=== PATIENT | female | born 1990 | race Caucasian/White ===

== ENCOUNTER 2016-12-05 10:55 | Emergency (ER) | payer BC ==
[2016-12-05 11:26] VITALS: BP 155/82
[2016-12-05] MEDS ORDERED: NS 0.9% 1000 ML* 1,000 ML IV ONE (11:50)
--- NOTE | 2016-12-05 12:34 | RAD ---
INDICATION: 5 week with spotting COMPARISON: None TECHNIQUE: Transvaginal scans were performed for the purposes of early evaluation. FINDINGS: There is a single intrauterine gestation with identification of the pole and yolk sac. cardiac activity is not confirmed. The pole corresponds to a 6 week 5 day gestation and the sac size to a 5 week 5 day gestation. There is no subchorionic hemorrhage. The right ovary measures 3.4 x 2.5 x 2.0 cm and the left ovary 2.5 x 1.7 x 1.4 cm. IMPRESSION: EARLY INTRAUTERINE GESTATION AT APPROXIMATELY 6 WEEKS. CARDIAC ACTIVITY IS NOT CONFIRMED BUT THIS IS A VERY EARLY GESTATION. SUGGEST CORRELATION WITH SERIAL BETA-HCGS AND FOLLOW-UP ULTRASONOGRAPHY TO ASSESS FOR VIABILITY.
[2016-12-05 13:02] LABS: Hematocrit 38 % (35-47); Mean Corpuscular HGB Conc 34 g/dl (31-36); Mean Corpuscular Hemoglobin 29 pg (27-31); Mean Corpuscular Volume 85 fL (80-97); Mean Platelet Volume 8 um3 (7.4-10.4); Red Blood Count 4.52 10^6/ul (4.0-5.4); Red Cell Distribution Width 13 % (10.5-15); White Blood Count 10.5 10^3/ul (3.5-10.8)
[2016-12-05 13:18] LABS: Albumin 4.1 g/dL (3.2-5.2); BUN/Creatinine Ratio 11.6 (8-20); Calcium 9.7 mg/dL (8.6-10.3); EGFR African American 103.4 (>60); EGFR Non-African American 80.4 (>60); Globulin 3.3 g/dL (2-4); Total Bilirubin 0.3 mg/dL (0.2-1.0); Total Protein 7.4 g/dL (6.4-8.9)
[2016-12-05 13:19] LABS: Potassium 3.7 mmol/L (3.5-5.0)
--- NOTE | 2016-12-05 19:53 | ED ---
Arnoldo Echavarria Adam, scribed for J Luis Francis MD on 12/05/16 at 1347 . - HPI Summary HPI Summary: Pt is a 26 year old female presenting with vaginal bleeding. She believes that she is 5 weeks into her and she came to the ED because she realized she was spotting when she went to the bathroom at work today. She also reports nausea. She denies any pain, cramping, or dysuria. This is the pt' s first . LMP was 10/19. She has had lab work done with her ENGINE REPAIRER but no ultrasound. - History of Current Complaint Chief Complaint: EDOBProblems Stated Complaint: 5WKS PREG / SPOTTING Time Seen by Provider: 12/05/16 12:34 Hx Obtained From: Patient Chief Complaint: Vaginal Bleeding - Spotting Onset/Duration: Started Hours Ago, Atraumatic, Resolved Timing: Intermittent Severity: Moderate Current Severity: None Location of Pain: None Aggravating Factors: Nothing Alleviating Factors: Nothing Associated Signs and Symptoms: Positive: Negative - Allergies/Home Medications Allergies/Adverse Reactions: Allergies Allergy/AdvReac Type Severity Reaction Status Date / Time No Known Allergies Allergy Verified 10/31/16 18:21 PMH/Surg Hx/FS Hx/Imm Hx Endocrine/Hematology History: Denies: Hx Diabetes, Hx Thyroid Disease Cardiovascular History: Denies: Hx Hypertension, Other Cardiovascular Problems/Disorders Respiratory History: Reports: Hx Asthma, Hx Sleep Apnea, Other Respiratory Problems/Disorders - born premature, was intubated then, throat issues Denies: Hx Chronic Obstructive Pulmonary Disease (COPD) GI History: Denies: Hx Ulcer Musculoskeletal History: Denies: Other Musculoskeletal History Sensory History: Denies: Hx Contacts or Glasses, Hx Hearing Aid Opthamlomology History: Denies: Hx Contacts or Glasses Neurological History: Denies: Other Neuro Impairments/Disorders Psychiatric History: Reports: Hx Anxiety - ON MEDS, Hx Depression - ON MEDS - Surgical History Surgery Procedure, Year, and Place: 2011. EAR TUBES A CHILD. LARYNGEAL WEB EXCISION 04/20 [facility] Hx Anesthesia Reactions: No Infectious Disease History: No Infectious Disease History: Denies: Hx Hepatitis, Hx Human Immunodeficiency Virus (HIV), Traveled Outside the [place] in Last 30 Days - Family History Known Family History: Positive: None Negative: Cardiac Disease Family History: no cardiovascular issues in family lineage - Social History Occupation: Student Lives: Alone Alcohol Use: None Hx Substance Use: No Substance Use Type: Reports: None Hx Tobacco Use: No Smoking Status (MU): Never Smoked Tobacco Have You Smoked in the Last Year: No Review of Systems Constitutional: Negative Negative: Fever Positive: Nausea. Negative: Abdominal Pain Positive: other - Vaginal bleeding/spotting. Negative: dysuria All Other Systems Reviewed And Are Negative: Yes Physical Exam - Physical Exam Triage Information Reviewed: Yes Vital Signs Reviewed: Yes Appearance: Positive: Well-Appearing, No Pain Distress Skin: Positive: Warm, Skin Color Reflects Adequate Perfusion, Dry Head/Face: Positive: Normal Head/Face Inspection Eyes: Positive: Normal ENT: Positive: Normal ENT inspection Neck: Positive: Supple, Nontender Respiratory/Lung Sounds: Positive: Clear to Auscultation, Breath Sounds Present Cardiovascular: Positive: RRR Abdomen Description: Positive: Nontender, Soft Bowel Sounds: Positive: Present Musculoskeletal: Positive: Normal Neurological: Positive: Normal Psychiatric: Positive: Normal, Affect/Mood Appropriate Diagnostics - Vital Signs Vital Signs Temp Pulse Resp BP Pulse Ox 12/05/16 11:23 98.6 F 84 18 155/82 100 - Laboratory Lab Results: Lab Results 12/05/16 12/05/16 12/05/16 Range/Units 12:52 12:52 12:52 WBC 10.5 (3.5-10.8) 10^3/ul RBC 4.52 (4.0-5.4) 10^6/ul Hgb 13.0 (12.0-16.0) g/dl Hct 38 (35-47) % MCV 85 (80-97) fL MCH 29 (27-31) pg MCHC 34 (31-36) g/dl RDW 13 (10.5-15) % Plt Count 437 (150-450) 10^3/ul MPV 8 (7.4-10.4) um3 Neut % (Auto) 73.6 (38-83) % Lymph % (Auto) 19.3 L (25-47) % [place] % (Auto) 5.2 (1-9) % Eos % (Auto) 1.3 (0-6) % Baso % (Auto) 0.6 (0-2) % Absolute Neuts (auto) 7.7 (1.5-7.7) 10^3/ul Absolute Lymphs (auto) 2.0 (1.0-4.8) 10^3/ul Absolute Monos (auto) 0.5 (0-0.8) 10^3/ul Absolute Eos (auto) 0.1 (0-0.6) 10^3/ul Absolute Basos (auto) 0.1 (0-0.2) 10^3/ul Absolute Nucleated RBC 0 10^3/ul Nucleated RBC % 0 Sodium 134 (133-145) mmol/L Potassium 3.7 (3.5-5.0) mmol/L Chloride 104 (101-111) mmol/L Carbon Dioxide 23 (22-32) mmol/L Anion Gap 7 (2-11) mmol/L BUN 10 (6-24) mg/dL Creatinine 0.86 (0.51-0.95) mg/dL Est GFR ( Amer) 103.4 (>60) Est GFR (Non-Af Amer) 80.4 (>60) BUN/Creatinine Ratio 11.6 (8-20) Glucose 80 (70-100) mg/dL Calcium 9.7 (8.6-10.3) mg/dL Total Bilirubin 0.30 (0.2-1.0) mg/dL AST 24 (13-39) U/L ALT 61 H (7-52) U/L Alkaline Phosphatase 52 (34-104) U/L Total Protein 7.4 (6.4-8.9) g/dL Albumin 4.1 (3.2-5.2) g/dL Globulin 3.3 (2-4) g/dL Albumin/Globulin Ratio 1.2 (1-3) Beta HCG, Quant 17286.00 mIU/mL Blood Type Pending Result Diagrams: 12/05/16 12:52 12/05/16 12:52 Lab Statement: Any lab studies that have been ordered have been reviewed, and results considered in the medical decision making process. - Additional Comments Diagnostic Additional Comments: Beta HCG, Quant - 43597.00 Transvaginal US - IMPRESSION: EARLY INTRAUTERINE GESTATION AT APPROXIMATELY 6 WEEKS. CARDIAC ACTIVITY IS NOT CONFIRMED BUT THIS IS A VERY EARLY GESTATION. SUGGEST CORRELATION WITH SERIAL BETA-HCGS AND FOLLOW-UP ULTRASONOGRAPHY TO ASSESS FOR VIABILITY. Course/Dx - Course Course Of Treatment: Eloisa Bernal has had a positive test about a week ago and is about 5 weeks from her LMP. She started spotting this AM without any other significant symptoms. Her HCG was elevated and an U/S soulded a 6 week IUP. She was reassured and is to F/U with [facility]. - Diagnoses Provider Diagnoses: Spotting in first trimester Discharge - Discharge Plan Condition: Stable Disposition: HOME Patient Education Materials: First Trimester Vaginal Bleed (ED) Forms: *Work Release Referrals: [facility] [Provider Group] Additional Instructions: Follow up with [facility]. The documentation as recorded by the Arnoldo vega Adam accurately reflects the service I personally performed and the decisions made by me, J Luis Francis MD.
== END 2016-12-05 14:08 | disposition home or self-care (01) ==
LOC: ED 10:55
DX: O46.91 Antepartum hemorrhage, unspecified, first trimester (principal); Z3A.01 Less than 8 weeks gestation of pregnancy; R11.0 Nausea
CPT/HCPCS: 36415; 76817; 80053; 84702; 85025; 86900; 86901; 99281

== ENCOUNTER → 2017-06-24 12:32 | Emergency (ER) | payer BC ==
[~2017-06-24 12:32] MED LIST: Metoclopramide IV* 5 MG/ML 2 ML VIAL IV SLOW PU ONE
[2017-06-24] MEDS: NS 0.9% 1000 ML* 2,000 ML IV ONE (18:51)
[2017-06-24 19:20] LABS: Hematocrit 39 % (35-47); Hemoglobin 13.1 g/dl (12.0-16.0); Mean Corpuscular HGB Conc 34 g/dl (31-36); Mean Corpuscular Hemoglobin 29 pg (27-31); Mean Corpuscular Volume 86 fL (80-97); Mean Platelet Volume 8 um3 (7.4-10.4); Red Blood Count 4.53 10^6/ul (4.0-5.4); Red Cell Distribution Width 13 % (10.5-15)
[2017-06-24 19:32] LABS: Albumin 4.2 g/dL (3.2-5.2); BUN/Creatinine Ratio 10.8 (8-20); C Reactive Protein 10.16 mg/L (< 5.00); Calcium 9.2 mg/dL (8.6-10.3); EGFR Non-African American 94.9 (>60); Globulin 3.4 g/dL (2-4); Potassium 3.7 mmol/L (3.5-5.0); Total Bilirubin 0.4 mg/dL (0.2-1.0); Total Protein 7.6 g/dL (6.4-8.9)
[2017-06-24 20:09] LABS: Urine Bacteria Absent (Absent); Urine Bilirubin Negative (Negative); Urine Glucose Negative (Negative); Urine Nitrite Negative (Negative)
--- NOTE | 2017-06-24 20:36 | ED ---
GI/ HPI - HPI Summary HPI Summary: 27F at 8 weeks presents with nausea and vomiting. She denies any abdominal pain, vaginal discharge or bleeding. She states that she has not had appetite for many days due to the nausea and so she feels dehydrated. She states this has caused her to have a headache. She saw her obgyn who prescribed dicelgis but she has not been able to start it yet. She denies any fever, flank pain, dysuria, hematuria, frequency or urgency. She denies any previous abdominal surgeries. - History of Current Complaint Chief Complaint: EDOBProblems Time Seen by Provider: 06/24/17 18:03 Stated Complaint: N,V 8 WEEKS PREG Hx Last Menstrual Period: LAST WEEK Pain Intensity: 0 - Allergy/Home Medications Allergies/Adverse Reactions: Allergies Allergy/AdvReac Type Severity Reaction Status Date / Time No Known Allergies Allergy Verified 10/31/16 18:21 PMH/Surg Hx/FS Hx/Imm Hx Endocrine/Hematology History: Denies: Hx Diabetes, Hx Thyroid Disease Cardiovascular History: Denies: Hx Hypertension, Other Cardiovascular Problems/Disorders Respiratory History: Reports: Hx Asthma, Hx Sleep Apnea, Other Respiratory Problems/Disorders - born premature, was intubated then, throat issues Denies: Hx Chronic Obstructive Pulmonary Disease (COPD) GI History: Denies: Hx Ulcer Musculoskeletal History: Denies: Other Musculoskeletal History Sensory History: Denies: Hx Contacts or Glasses, Hx Hearing Aid Opthamlomology History: Denies: Hx Contacts or Glasses Neurological History: Denies: Other Neuro Impairments/Disorders Psychiatric History: Reports: Hx Anxiety - ON MEDS, Hx Depression - ON MEDS - Surgical History Surgery Procedure, Year, and Place: [facility], 2011. EAR TUBES A CHILD. [place] [facility] [place]est[place] Reactions: No Infectious Disease History: No Infectious Disease History: Denies: Hx Hepatitis, Hx Human Immunodeficiency Virus (HIV), Traveled Outside the US in Last 30 Days - Family History Known Family History: Positive: None Negative: Cardiac Disease Family History: no cardiovascular issues in family lineage - Social History Alcohol Use: None Hx Substance Use: No Substance Use Type: Reports: None Hx Tobacco Use: No Smoking Status (MU): Never Smoked Tobacco Have You Smoked in the Last Year: No Review of Systems Negative: Fever Negative: Chest Pain Negative: Shortness Of Breath Positive: Vomiting, Nausea. Negative: Abdominal Pain All Other Systems Reviewed And Are Negative: Yes Physical Exam Triage Information Reviewed: Yes Vital Signs On Initial Exam: Initial Vitals Temp Pulse Resp BP Pulse Ox 98.1 F 84 18 136/76 98 06/24/17 12:53 06/24/17 12:53 06/24/17 12:53 06/24/17 12:53 06/24/17 12:53 Vital Signs Reviewed: Yes Appearance: Positive: Well-Appearing Skin: Positive: Warm, Skin Color Reflects Adequate Perfusion, Dry Head/Face: Positive: Normal Head/Face Inspection Eyes: Positive: Normal, Conjunctiva Clear ENT: Positive: Normal ENT inspection, Pharynx normal, TMs normal Respiratory/Lung Sounds: Positive: Clear to Auscultation, Breath Sounds Present Cardiovascular: Positive: Normal, RRR Abdomen Description: Positive: Nontender, Soft Bowel Sounds: Positive: Present - Isaac Coma Scale Coma Scale Total: 15 Diagnostics - Vital Signs Vital Signs Temp Pulse Resp BP Pulse Ox 06/24/17 18:46 97.8 F 87 16 124/61 100 06/24/17 18:30 67 124/61 100 06/24/17 18:00 73 124/104 100 06/24/17 17:55 76 99 06/24/17 17:52 121/73 06/24/17 14:19 98.6 F 73 16 118/67 97 06/24/17 12:53 98.1 F 84 18 136/76 98 - Laboratory Lab Results: Lab Results 06/24/17 06/24/17 06/24/17 Range/Units 19:05 19:05 19:05 WBC 12.0 H (3.5-10.8) 10^3/ul RBC 4.53 (4.0-5.4) 10^6/ul Hgb 13.1 (12.0-16.0) g/dl Hct 39 (35-47) % MCV 86 (80-97) fL MCH 29 (27-31) pg MCHC 34 (31-36) g/dl RDW 13 (10.5-15) % Plt Count 382 (150-450) 10^3/ul MPV 8 (7.4-10.4) um3 Neut % (Auto) 76.1 (38-83) % Lymph % (Auto) 17.4 L (25-47) % Mccormick % (Auto) 5.0 (1-9) % Eos % (Auto) 0.7 (0-6) % Baso % (Auto) 0.8 (0-2) % Absolute Neuts (auto) 9.1 H (1.5-7.7) 10^3/ul Absolute Lymphs (auto) 2.1 (1.0-4.8) 10^3/ul Absolute Monos (auto) 0.6 (0-0.8) 10^3/ul Absolute Eos (auto) 0.1 (0-0.6) 10^3/ul Absolute Basos (auto) 0.1 (0-0.2) 10^3/ul Absolute Nucleated RBC 0.01 10^3/ul Nucleated RBC % 0.1 Sodium 134 (133-145) mmol/L Potassium 3.7 (3.5-5.0) mmol/L Chloride 103 (101-111) mmol/L Carbon Dioxide 23 (22-32) mmol/L Anion Gap 8 (2-11) mmol/L BUN 8 (6-24) mg/dL Creatinine 0.74 (0.51-0.95) mg/dL Est GFR ( Amer) 122.0 (>60) Est GFR (Non-Af Amer) 94.9 (>60) BUN/Creatinine Ratio 10.8 (8-20) Glucose 78 (70-100) mg/dL Lactic Acid 1.0 (0.5-2.0) mmol/L Calcium 9.2 (8.6-10.3) mg/dL Total Bilirubin 0.40 (0.2-1.0) mg/dL AST 16 (13-39) U/L ALT 43 (7-52) U/L Alkaline Phosphatase 63 (34-104) U/L C-Reactive Protein 10.16 H (< 5.00) mg/L Total Protein 7.6 (6.4-8.9) g/dL Albumin 4.2 (3.2-5.2) g/dL Globulin 3.4 (2-4) g/dL Albumin/Globulin Ratio 1.2 (1-3) Lipase 23 (11.0-82.0) U/L Beta HCG, Quant 205398.00 mIU/mL Urine Color Urine Appearance Urine pH (5-9) Ur Specific Leland (1.010-1.030) Urine Protein (Negative) Urine Ketones (Negative) Urine Blood (Negative) Urine Nitrate (Negative) Urine Bilirubin (Negative) Urine Urobilinogen (Negative) Ur Leukocyte Esterase (Negative) Urine WBC (Auto) (Absent) Urine RBC (Auto) (Absent) Ur Squamous Epith Cells (Absent) Urine Bacteria (Absent) Urine Glucose (Negative) Urine Ascorbic Acid (Negative) 06/24/17 Range/Units 19:36 WBC (3.5-10.8) 10^3/ul RBC (4.0-5.4) 10^6/ul Hgb (12.0-16.0) g/dl Hct (35-47) % MCV (80-97) fL MCH (27-31) pg MCHC (31-36) g/dl RDW (10.5-15) % Plt Count (150-450) 10^3/ul MPV (7.4-10.4) um3 Neut % (Auto) (38-83) % Lymph % (Auto) (25-47) % M[place]ormick % (Auto) (1-9) % Eos % (Auto) (0-6) % Baso % (Auto) (0-2) % Absolute Neuts (auto) (1.5-7.7) 10^3/ul Absolute Lymphs (auto) (1.0-4.8) 10^3/ul Absolute Monos (auto) (0-0.8) 10^3/ul Absolute Eos (auto) (0-0.6) 10^3/ul Absolute Basos (auto) (0-0.2) 10^3/ul Absolute Nucleated RBC 10^3/ul Nucleated RBC % Sodium (133-145) mmol/L Potassium (3.5-5.0) mmol/L Chloride (101-111) mmol/L Carbon Dioxide (22-32) mmol/L Anion Gap (2-11) mmol/L BUN (6-24) mg/dL Creatinine (0.51-0.95) mg/dL Est GFR ( Amer) (>60) Est GFR (Non-Af Amer) (>60) BUN/Creatinine Ratio (8-20) Glucose (70-100) mg/dL Lactic Acid (0.5-2.0) mmol/L Calcium (8.6-10.3) mg/dL Total Bilirubin (0.2-1.0) mg/dL AST (13-39) U/L ALT (7-52) U/L Alkaline Phosphatase (34-104) U/L C-Reactive Protein (< 5.00) mg/L Total Protein (6.4-8.9) g/dL Albumin (3.2-5.2) g/dL Globulin (2-4) g/dL Albumin/Globulin Ratio (1-3) Lipase (11.0-82.0) U/L Beta HCG, Quant mIU/mL Urine Color Yellow Urine Appearance Clear Urine pH 5.0 (5-9) Ur Specific Leland 1.025 (1.010-1.030) Urine Protein Negative (Negative) Urine Ketones 1+ H (Negative) Urine Blood Negative (Negative) Urine Nitrate Negative (Negative) Urine Bilirubin Negative (Negative) Urine Urobilinogen Negative (Negative) Ur Leukocyte Esterase Trace H (Negative) Urine WBC (Auto) Trace(0-5/hpf) (Absent) Urine RBC (Auto) Trace(0-2/hpf) (Absent) Ur Squamous Epith Cells Present H (Absent) Urine Bacteria Absent (Absent) Urine Glucose Negative (Negative) Urine Ascorbic Acid * H (Negative) Result Diagrams: 06/24/17 19:05 06/24/17 19:05 Lab Statement: Any lab studies that have been ordered have been reviewed, and results considered in the medical decision making process. GIGU Course/Dx - Course Course Of Treatment: 27F at 8 weeks presents with nausea and vomiting. She denies any abdominal pain, vaginal discharge or bleeding. She states that she has not had appetite for many days due to the nausea and so she feels dehydrated. She states this has caused her to have a headache. She saw her obgyn who prescribed dicelgis but she has not been able to start it yet. She denies any fever, flank pain, dysuria, hematuria, frequency or urgency. She denies any previous abdominal surgeries. on exam abd nontender. gave fluids and reglan and feeling better. labs wbc a little elevated but expect in . will have add bendaryl for break through nausea. patient understands and agrees with plan. - Diagnoses Differential Diagnoses - Female: , Urinary Tract Infection, Vomiting Provider Diagnoses: Nausea and vomiting during Discharge - Discharge Plan Condition: Good Disposition: HOME Patient Education Materials: Nausea and Vomiting in (ED) Referrals: Sweta Limon MD [Primary Care Provider] - Additional Instructions: Eat small snacks and drink fluids as tolerated Follow up with obgyn Start dicelgis if need more relieve can add Benadryl every 6 hours Return to ED if develop any new or worsening symptoms
[2017-06-24 20:53] VITALS: BP 108/68
== END | disposition home or self-care (01) ==
LOC: ED 12:32
DX: O26.891 Other specified pregnancy related conditions, first trimester (principal); Z3A.08 8 weeks gestation of pregnancy; O21.0 Mild hyperemesis gravidarum; J45.909 Unspecified asthma, uncomplicated; F41.9 Anxiety disorder, unspecified; F32.9 Major depressive disorder, single episode, unspecified
CPT/HCPCS: 36415; 80053; 81003; 81015; 83605; 83690; 84702; 85025; 86140; 87086; 96361; 96374; 99283; J2765

== ENCOUNTER 2018-01-26 07:56 | Inpatient (IN) | payer BC ==
[2018-01-26] MEDS ORDERED: Oxytocin in LR* 20 UNITS/1,000 ML BAG IVPB SCH (09:00)
[2018-01-26 09:53] LABS: ABS Basophils 0.1 10^3/ul (0-0.2); ABS Eosinophils 0.1 10^3/ul (0-0.6); ABS Lymphocytes 2.1 10^3/ul (1.0-4.8); ABS Monocytes 0.7 10^3/ul (0-0.8); ABS Neutrophils 9.6 10^3/ul (1.5-7.7); ABS Nucleated RBC 0 10^3/ul; Eosinophil % 0.9 % (0-6); Hematocrit 34 % (35-47); Hemoglobin 11.2 g/dl (12.0-16.0); Lymphocyte % 16.4 % (25-47); Mean Corpuscular HGB Conc 33 g/dl (31-36); Mean Corpuscular Hemoglobin 26 pg (27-31); Mean Corpuscular Volume 80 fL (80-97); Nucleated Red Blood Cells % 0; Platelet Count 385 10^3/ul (150-450); Red Cell Distribution Width 15 % (10.5-15); White Blood Count 12.6 10^3/ul (3.5-10.8)
[2018-01-26] MEDS ORDERED: Cetirizine* 10 MG TAB PO SCH (22:11)
[2018-01-26] MEDS ORDERED: Montelukast Sodium TAB* 10 MG PO SCH (22:15)
[2018-01-26] MEDS: Omeprazole CAP* 20 MG PO SCH (22:36)
[2018-01-26] MEDS: BuPROPion XL* 150 MG TAB.XL PO SCH (22:36)
[2018-01-27] MEDS ORDERED: OBEPIDURAL* 250 ML EPIDURAL ONE (13:24)
[2018-01-27] MEDS ORDERED: Famotidine TAB* 20 MG PO PRN (14:00)
[2018-01-27] MEDS ORDERED: OBEPIDURAL* 250 ML EPIDURAL SCH (14:00)
[2018-01-27] MEDS ORDERED: EPHEDrine (Pressors)* 50 MG/ML VIAL IV PUSH PRN ×2 (14:00)
[2018-01-27] MEDS ORDERED: Phenylephrine IV* 40 MCG/ML 10 ML SYRINGE IV PUSH PRN ×2 (14:00)
[2018-01-27] MEDS ORDERED: Sodium Citrate/Citric Acid* 15 ML UDC PO PRN (14:00)
[2018-01-27] MEDS: BuPROPion XL* 150 MG TAB.XL PO SCH (17:11)
[2018-01-27] MEDS: Omeprazole CAP* 20 MG PO SCH (17:11)
[2018-01-27] MEDS ORDERED: ceFOXitin(*) 2 GM in NS 0.9% 100 ML* 100 ML IVPB ONE (20:00)
[2018-01-27] MEDS ORDERED: fentaNYL* 50 MCG/ML 2 ML VIAL (100 MCG VIAL) ONE (20:12)
[2018-01-27] MEDS ORDERED: Morphine PF AMP (0.5MG/ML)* 5 MG/10 ML AMP ONE (20:29)
[2018-01-27] MEDS ORDERED: Phenylephrine IV* 40 MCG/ML 10 ML SYRINGE ONE (20:48)
[2018-01-27] MEDS ORDERED: Ketorolac INJ* 30 MG/ML 1 ML VIAL ONE (20:48)
[2018-01-27] MEDS ORDERED: OXYTOCIN* 10 UNITS/ML 1 ML VIAL ONE (20:48)
[2018-01-27] MEDS ORDERED: Ondansetron INJ* 2 MG/ML VIAL ONE (20:53)
[2018-01-27] MEDS ORDERED: Glycerin ADULT SUPP PR PRN (21:16)
[2018-01-27] MEDS ORDERED: Witch Hazel PAD* JAR TOPICAL PRN (21:16)
[2018-01-27] MEDS ORDERED: Measles, Mumps,Rubella VACC* 0.5 ML/VIAL SUBCUT ONE (21:16)
[2018-01-27] MEDS ORDERED: Acetaminophen TAB* 325 MG PO PRN (21:16)
[2018-01-27] MEDS ORDERED: Dibucaine 1% 28.35 GM TUBE PR PRN (21:16)
[2018-01-27] MEDS ORDERED: Ondansetron INJ* 2 MG/ML VIAL IV PRN (22:40)
[2018-01-27] MEDS ORDERED: oxyCODONE/Acetamin 5/325 MG* TAB PO PRN (22:40)
[2018-01-27] MEDS ORDERED: Naloxone* 0.4 MG/ML 1 ML VIAL IV PRN ×2 (22:40→22:42)
[2018-01-27] MEDS ORDERED: PROCHLORPERAZINE INJ 5 MG/ML 2 ML VIAL IV PRN (22:42)
[2018-01-27] MEDS ORDERED: diPHENhydraMINE IV* 50 MG/ML 1 ml VIAL (BENADRYL) IV PRN (22:42)
[2018-01-27] MEDS ORDERED: oxyCODONE TAB* 5 MG TAB PO PRN (22:42)
[2018-01-27] MEDS ORDERED: PROCHLORPERAZINE INJ 5 MG/ML 2 ML VIAL ONE (23:07)
[2018-01-28] MEDS: Ketorolac INJ* 30 MG/ML 1 ML VIAL IV PRN ×3 (04:56→17:50)
[2018-01-28] MEDS: Montelukast Sodium TAB* 10 MG PO SCH ×2 (05:09→21:59)
[2018-01-28] MEDS: BuPROPion XL* 150 MG TAB.XL PO SCH ×2 (05:09→22:00)
[2018-01-28] MEDS: Cetirizine* 10 MG TAB PO SCH ×2 (05:09→21:59)
[2018-01-28] MEDS: Omeprazole CAP* 20 MG PO SCH ×2 (05:09→22:00)
--- NOTE | 2018-01-28 05:31 | OP ---
OPERATIVE REPORT: DATE OF OPERATION: 01/27/18 DATE OF : [birth year] SURGEON: Kely Aparicio MD SCIENCE JOB TITLES: Sigrid Li CNM PRE-OP DIAGNOSIS: Intrauterine gestation at 39 plus weeks gestational age, arrest of dilation at 6 cm. POST-OP DIAGNOSIS: Intrauterine gestation at 39 plus weeks gestational age, arrest of dilation at 6 cm. OPERATIVE PROCEDURE: Primary lower transverse section. ESTIMATED BLOOD LOSS: 600 mL. FLUIDS: Crystalloid. SPECIMEN: Placenta. FINDINGS: Male infant. Apgars 9 and 9. Weight 7 pounds 10 ounces. Normal- appearing placenta. Normal appearing uterus, ovaries, and tubes. Prominent bony ridge along the internal surface at the junction of the pubic bones. INDICATION: The patient underwent induction of labor at 39 weeks due to significant proteinuria without elevated blood pressures. She proceeded to 6 cm , but remained that for 7 hours with adequate contractions documented. She also had a category 2 heart tracing with late decelerations; therefore, the decision was made to proceed with section. Informed consent was signed. The risks were reviewed with the patient and questions were answered. DESCRIPTION OF PROCEDURE: The patient was taken to the operating room where her epidural anesthesia was found to be adequate. She was prepped and draped in the dorsal supine position with a leftward tilt. A Finley catheter was already placed in her bladder. SCDs were placed on her legs. A time-out was performed. A transverse incision was then made with the scalpel and carried down to the underlying layer of fascia. The fascia was incised on either side of the midline and the fascial incision was extended laterally with the Jimenez scissors. The inferior edge of the fascial incision was grasped with Shalonda clamps, tented up and dissected down with sharp dissection. Then, the superior edge of the fascial incision was grasped with Shalonda clamps, tented up and dissected down with sharp dissection. The rectus muscles were in the midline and the peritoneum was entered bluntly. The peritoneal incision was extended laterally with blunt pressure. The bladder blade was inserted and a transverse incision was made in the lower uterine segment with the scalpel. This incision was extended superiorly and inferiorly with blunt pressure. The 's head was noted to be in direct occiput posterior presentation. The head was delivered with fundal pressure followed by the shoulders and the rest of the body. After more than 30 seconds, the cord was clamped x2 and cut and the baby was handed to the wool spotter. The cord blood was collected. The placenta was then delivered with fundal massage and gentle cord traction. The uterus was exteriorized. The uterus was cleared of clots and debris. The uterine incision was then closed with 0 Vicryl in a running locked fashion with a second layer of suture imbricating the first. The abdomen was irrigated. The uterus was placed back into the abdominal cavity and good hemostasis was noted all along the uterine incision. The peritoneum was closed with 3-0 Vicryl in a running unlocked fashion. The fascia was closed with 0 Vicryl in a running unlocked fashion. The subcuticular layer was irrigated and the skin was then closed with 4-0 Monocryl in a running subcuticular fashion. The incision was cleaned. Mastisol and Steri-Strips were placed and dressing was placed and patient was moved to the stretcher and taken to the recovery room in stable condition. [id number]/[facility] #: [id number] KONG
[2018-01-28 07:00] LABS: ABS Basophils 0 10^3/ul (0-0.2); ABS Eosinophils 0 10^3/ul (0-0.6); ABS Lymphocytes 1.1 10^3/ul (1.0-4.8); ABS Monocytes 1.1 10^3/ul (0-0.8); ABS Neutrophils 14.6 10^3/ul (1.5-7.7); ABS Nucleated RBC 0 10^3/ul; Eosinophil % 0.2 % (0-6); Hematocrit 24 % (35-47); Hemoglobin 8.2 g/dl (12.0-16.0); Lymphocyte % 6.8 % (25-47); Mean Corpuscular HGB Conc 34 g/dl (31-36); Mean Corpuscular Hemoglobin 27 pg (27-31); Mean Corpuscular Volume 80 fL (80-97); Mean Platelet Volume 7.7 um3 (7.4-10.4); Nucleated Red Blood Cells % 0.1; Platelet Count 306 10^3/ul (150-450); Red Blood Count 3.03 10^6/ul (4.0-5.4); Red Cell Distribution Width 15 % (10.5-15); White Blood Count 16.9 10^3/ul (3.5-10.8)
[2018-01-28] MEDS: Docusate CAP* 100 MG PO SCH ×3 (09:03→21:59)
[2018-01-28] MEDS: Ferrous Gluconate TAB* 324 MG TAB PO SCH ×2 (09:04→21:59)
[2018-01-28] MEDS: Simethicone TAB* 80 MG TAB.CHEW PO SCH ×4 (09:04→22:00)
[2018-01-28] MEDS ORDERED: oxyCODONE/Acetamin 5/325 MG* TAB PO PRN (13:00)
[2018-01-28] MEDS ORDERED: Zolpidem TAB* 5 MG PO PRN (13:00)
[2018-01-28] MEDS: oxyCODONE/Acetamin 5/325 MG* TAB PO PRN ×3 (13:40→22:00)
[2018-01-28] MEDS: Ibuprofen TAB* 600 MG PO PRN (23:40)
[2018-01-29] MEDS: oxyCODONE/Acetamin 5/325 MG* TAB PO PRN ×5 (02:30→20:07)
[2018-01-29] MEDS: Ibuprofen TAB* 600 MG PO PRN ×3 (06:01→17:55)
[2018-01-29] MEDS: Ferrous Gluconate TAB* 324 MG TAB PO SCH ×2 (08:31→21:14)
[2018-01-29] MEDS: Simethicone TAB* 80 MG TAB.CHEW PO SCH ×4 (08:31→21:12)
[2018-01-29] MEDS: Docusate CAP* 100 MG PO SCH ×3 (08:31→21:13)
--- NOTE | 2018-01-29 13:15 | PTEDU ---
Patient Name: THERESA JETT THERESA JETT selected video: Never Ever Shake a Baby to view on 01/29/2018 at 1:14:29 PM [id number]
[2018-01-29] MEDS: Omeprazole CAP* 20 MG PO SCH (21:13)
[2018-01-29] MEDS: BuPROPion XL* 150 MG TAB.XL PO SCH (21:13)
[2018-01-29] MEDS: Cetirizine* 10 MG TAB PO SCH (21:14)
[2018-01-29] MEDS: Montelukast Sodium TAB* 10 MG PO SCH (21:14)
[2018-01-30] MEDS: oxyCODONE/Acetamin 5/325 MG* TAB PO PRN (00:39)
[2018-01-30] MEDS: Ibuprofen TAB* 600 MG PO PRN (07:21)
[2018-01-30 08:18] VITALS: BP 129/81
[2018-01-30] MEDS: Ferrous Gluconate TAB* 324 MG TAB PO SCH (08:48)
[2018-01-30] MEDS: Simethicone TAB* 80 MG TAB.CHEW PO SCH (08:48)
[2018-01-30] MEDS: Docusate CAP* 100 MG PO SCH (08:49)
== END 2018-01-30 12:50 | disposition home or self-care (01) | DRG 540 ==
LOC: MCHOBOUT 07:56 → MCHOB 08:52
PROVIDERS: ADMIT Midwife; ATTEND Obstetrics & Gynecology
PROC: 3E033VJ Introduction of Other Hormone into Peripheral Vein, Percutaneous Approach (ICD-10-PCS; 2018-01-27)
PROC: 10907ZC Drainage of Amniotic Fluid, Therapeutic from Products of Conception, Via Natural or Artificial Opening (ICD-10-PCS; 2018-01-27)
PROC: 10D00Z1 Extraction of Products of Conception, Low, Open Approach (ICD-10-PCS; principal; 2018-01-27 20:05)
DX: O62.0 Primary inadequate contractions (principal); F41.9 Anxiety disorder, unspecified; O12.14 Gestational proteinuria, complicating childbirth; O69.81X0 Labor and delivery complicated by cord around neck, without compression, not applicable or unspecified; O99.344 Other mental disorders complicating childbirth; J45.909 Unspecified asthma, uncomplicated; Z3A.39 39 weeks gestation of pregnancy; Z37.0 Single live birth
CPT/HCPCS: 36415; 85025; 86850; 86900; 86901; A9270-GY; J0694; J0780; J1885; J2405; J2590; J3010

== ENCOUNTER 2019-10-12 07:30 | Emergency (ER) | payer BC, OTHER ==
--- OUTSIDE RECORDS SUMMARY | 2019-10-12 07:38 | XMS REPORT | Continuity of Care Document ---
:1990 External Reference #:[id number] Author Name Jordan Banerjee, OD Address [address] [place] [address] Care Team Providers Name Role Phone Sweta Mcpherson MD Care Team Information Vice President Sales And Marketing [phone] Problems Description No Information Available Social History Type Date Description Comments Sex Unknown ETOH Use Denies alcohol use Tobacco Use Start: Unknown Patient has never smoked Smoking Status Reviewed: 10/08/19 Patient has never smoked Allergies, Adverse Reactions, Alerts Active Allergies Reaction Severity Comments Date NKDA 10/09/2019 Seasonal 10/09/2019 Environmental 10/09/2019 Medications Active Medications SIG Qnty Indications Ordering Provider Date Wellbutrin SR 2 by mouth twice Unknown 150mg Tablets daily ER 12HR Singulair 1 by mouth every Unknown 10mg Tablets day One Daily Unknown Tablets Immunizations Description No Information Available Vital Signs Date Vital Result Comment 10/09/2019 8:30am Intraocular Pressure Right Eye 22 mmHg Intraocular Pressure Left Eye 21 mmHg Results Description No Information Available Procedures Date Code Description Status 10/09/2019 71854 Refraction Completed 10/09/2019 48695 Eye Exam New Intermediate Completed Medical Devices Description No Information Available Encounters Description No Information Available Assessments Date Code Description Provider 10/09/2019 H40.053 Ocular hypertension, bilateral Jordan Banerjee, OD 10/09/2019 H52.13 Myopia, bilateral Jrodan Banerjee, OD Plan of Treatment 10/09/2019 - Jordan Banerjee ODH40.053 Ocular hypertension, bilateralFollow up: yearly full, sooner PRNH52.13 Myopia, bilateralFollow up:yearly full, sooner PRN Functional Status Description No Information Available Mental Status Description No Information Available Referrals Description No Information Available
[2019-10-12 07:41] VITALS: BP 121/80
--- NOTE | 2019-10-12 08:12 | UC ---
FLU HPI - HPI Summary HPI Summary: 21-year-old female presents with 2 day history of general malaise, fatigue, body aches, low back pain,and sore throat. Patient states that last night she developed a fever of 102.4 F. denies ear pain, nasal congestion, dysphagia, cough, chest pain, shortness of breath, abdominal pain, nausea, vomiting, diarrhea, dysuria, frequency, urgency, or hematuria. - History of Current Complaint Chief Complaint: UCGeneralIllness Stated Complaint: FEVER BODYACHES Time Seen by Provider: 10/12/19 08:03 Hx Obtained From: Patient Hx Last Menstrual Period: 09/25/19 Pain Intensity: 3 - Allergy/Home Medications Allergies/Adverse Reactions: Allergies Allergy/AdvReac Type Severity Reaction Status Date / Time No Known Allergies Allergy Verified 10/12/19 07:42 PMH/Surg Hx/FS Hx/Imm Hx Previously Healthy: Yes - Surgical History Surgical History: Yes Surgery Procedure, Year, and Place: WISDOM TEETH, 2011. EAR TUBES A CHILD. LARYNGEAL WEB EXCISION 04/20 [facility] – [place] - Family History Known Family History: Positive: Non-Contributory Family History: no cardiovascular issues in family lineage - Social History Occupation: Employed Full-time Alcohol Use: None Substance Use Type: None Smoking Status (MU): Never Smoked Tobacco Have You Smoked in the Last Year: No - Immunization History Most Recent Influenza Vaccination: 07/2017 Most Recent Pneumonia Vaccination: never Review of Systems All Other Systems Reviewed And Are Negative: Yes Constitutional: Positive: Fever Skin: Negative: Rash Eyes: Negative: Drainage, Eye Redness ENT: Positive: Sore Throat. Negative: Ear Ache, Nasal Discharge, Sinus Congestion, Sinus Pain/Tenderness Respiratory: Negative: Shortness Of Breath, Cough Cardiovascular: Negative: Palpitations, Chest Pain Gastrointestinal: Negative: Abdominal Pain, Vomiting, Diarrhea, Nausea Genitourinary: Negative: Dysuria, Hematuria, Frequency, Urgency Musculoskeletal: Positive: Myalgia Neurological: Positive: Negative Is Patient Immunocompromised?: No Physical Exam - Summary Physical Exam Summary: GENERAL APPEARANCE: Well developed, well nourished, alert and cooperative, and appears to be in no acute distress. EYES: Conjunctiva clear. No drainage. EARS: External auditory canals and tympanic membranes clear, hearing grossly intact. NOSE: No nasal discharge. THROAT: Mild pharyngeal erythema. 2+ tonsils without exudate or lesions. Uvula midline. NECK: Neck supple, non-tender without lymphadenopathy. CARDIAC: Normal S1 and S2. No S3, S4 or murmurs. Rhythm is regular. There is no peripheral edema, cyanosis or pallor. Extremities are warm and well perfused. Capillary refill is less than 2 seconds. Peripheral pulses intact. LUNGS: Clear to auscultation without rales, rhonchi, wheezing or diminished breath sounds. ABDOMEN: Positive bowel sounds. Soft, nondistended, nontender. No guarding or rebound. No masses or hepatosplenomegally. No CVA tenderness. MUSKULOSKELETAL: ROM intact to all extremities. No joint erythema or tenderness. Normal muscular development. Normal gait. SKIN: Skin normal color, texture and turgor with no lesions or eruptions. Triage Information Reviewed: Yes Vital Signs: Initial Vital Signs Temp 99.5 F 10/12/19 07:37 Pulse 119 10/12/19 07:37 Resp 20 10/12/19 07:37 BP 121/80 10/12/19 07:37 Pulse Ox 98 10/12/19 07:37 Vital Signs Reviewed: Yes Flu Course/Dx - Course Course Of Treatment: 21-year-old female presents with 2 day history of general malaise, fatigue, body aches, low back pain,and sore throat. Patient states that last night she developed a fever of 102.4 F. denies ear pain, nasal congestion, dysphagia, cough, chest pain, shortness of breath, abdominal pain, nausea, vomiting, diarrhea, dysuria, frequency, urgency, or hematuria. He is afebrile. Tachycardic otherwise vitals stable. Patient had mild pharyngeal erythema with 2+ tonsils without exudates or lesions, no cervical lymphadenopathy, and otherwise unremarkable exam. Rapid strep test and rapid flu tests were negative. Results were reviewed with the patient. Recommending symptomatic treatment for a viral upper respiratory infection. She is to follow-up with her primary care provider in 3-5 days if symptoms are not improving. Anticipatory guidance and warning symptoms were reviewed with the patient. Verbalizes understanding and agrees with plan of care. - Differential Dx/Diagnosis Differential Diagnosis/HQI/PQRI: Bronchitis, Influenza, Upper Respiratory Infection, Other - UTI Provider Diagnosis: URI (upper respiratory infection) Discharge ED - Sign-Out/Discharge Documenting (check all that apply): Patient Departure All imaging exams completed and their final reports reviewed: No Studies - Discharge Plan Condition: Stable Disposition: HOME Patient Education Materials: Upper Respiratory Infection (ED) Forms: *Work Release Referrals: Sweta Limon MD [Primary Care Provider] - 3 Days Additional Instructions: The rapid strep test and rapid flu test performed in the clinic today were both negative. Your history and exam are consistent with a viral upper respiratory infection. Viral infections do not respond to antibiotics and are limited to the treatment of symptoms. Viral infections typically run their course in 7-10 days. Drink plenty of fluids to avoid dehydration especially if you are running any fever. Use a saline rinse kit such as Neti Pot or NeilMed at least twice a day to help thin secretions and promote drainage of the sinuses. Use fluticasone (Flonase) nasal spray 2 sprays each nostril once daily. Take over the counter acetaminophen (Tylenol) or ibuprofen (Advil, Motrin) according to directions as needed for pain or fever. Use salt water gargles several times a day if you have a sore throat. You may also use Chloraseptic spray or Cepacol lonzenges according to directions which contain a numbing medication and can provide some temporary relief from your sore throat. Follow up with your primary care provider in 3-5 days if symptoms persist. Seek immediate medical attention in the emergency room if you have fever greater than 100.5 F despite taking acetaminophen or ibuprofen, have chest pain , difficulty breathing, are unable to swallow, or have any worsening of symptoms. - Billing Disposition and Condition Condition: STABLE Disposition: Home - Attestation Statements Provider Attestation: I was available for consult. This patient was seen by the KESHIA. The patient was not presented to, seen by, or examined by me. -Elyse
[2019-10-12 08:48] LABS: Influenza A Molecular NEGATIVE (Negative); Influenza B Molecular NEGATIVE (Negative)
== END 2019-10-12 09:00 | disposition home or self-care (01) ==
LOC: UCEAST 07:30
DX: J06.9 Acute upper respiratory infection, unspecified (principal)
CPT/HCPCS: 81003; 87086; 87651; 99211; G0463